=== PATIENT | female | born 1950 | race Caucasian/White ===

== ENCOUNTER 2019-03-23 14:06 | Outpatient (CLI) | payer SELFPAY | END 2019-03-23 14:07 | disposition EMS.NT | LOC: EMS 14:06 | PROVIDERS: ATTEND Surgery | DX: S80.811A Abrasion, right lower leg, initial encounter (principal); X58.XXXA Exposure to other specified factors, initial encounter ==

== ENCOUNTER 2020-08-25 10:08 | Outpatient (CLI) | payer MEDICARE ==
--- NOTE | 2020-08-25 10:55 | XRAY Report ---
PROCEDURE: Knee 3 View RT INDICATIONS: RIGHT KNEE PAIN TECHNIQUE: 3 views of the right knee(s) were acquired. COMPARISON: None. FINDINGS: Bones: Irregularity and cortical disruption at the lateral tibial plateau and proximal fibular head. Minimal displacement. No dislocation of the knee joint. Moderate joint space height loss at the late ral femoral tibial compartment. Tricompartmental osteoarthrosis. No suspicious bony lesions. Soft tissues: Suprapatellar joint effusion. No suspicious soft tissue calcifications. 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 IMPRESSION: Lateral tibial plateau and fibular head fractures. Reviewed by: Sunday Stein MD on 08/25/2020 9:[address] [facility] Approved by: Sunday Stein MD on 08/25/2020 9:[address] [facility] Station ID: [id number]
== END 2020-08-25 23:59 | disposition home or self-care (01) ==
LOC: DI.S 10:08
PROVIDERS: ATTEND Physician Assistant
DX: S82.141A Displaced bicondylar fracture of right tibia, initial encounter for closed fracture (principal); S82.831A Other fracture of upper and lower end of right fibula, initial encounter for closed fracture

== ENCOUNTER 2020-08-30 12:39 | Emergency (ER) | payer MEDICARE ==
[2020-08-30 13:11] LABS: BASOPHILS % (AUTO) 0.5 %; EOSINOPHILS % (AUTO) 0.5 %; HGB - HEMOGLOBIN 12.1 g/dL (12.0-16.0); LYMPHOCYTES % (AUTO) 12.2 %; MEAN CORPUSCULAR HEMOGLOBIN 31.6 pg (27.0-31.0); MEAN CORPUSCULAR HGB CONC 33.6 g/dL (32.0-36.0); MEAN PLATELET VOLUME 8.3 fL (7.9-10.8); MONOCYTES # (AUTO) 0.6 10^3/uL (0.0-1.0); NEUTROPHILS # (AUTO) 6.5 10^3/uL (1.5-6.6); NEUTROPHILS % (AUTO) 79.6 %; PLT - PLATELET COUNT 308 10^3/uL (130-450); RED BLOOD COUNT 3.83 10^6/uL (4.20-5.40); RED CELL DISTRIBUTION WIDTH 12.4 % (12.0-15.0); WHITE BLOOD COUNT 8.2 x10^3/uL (4.8-10.8)
[2020-08-30 13:17] LABS: INR 1.1 (0.8-1.2); PT - PROTHROMBIN TIME 12.2 secs (9.9-12.6)
[2020-08-30 13:26] LABS: ALBUMIN 4.2 g/dL (3.2-5.5); ALBUMIN/GLOBULIN RATIO 1.1 (1.0-2.2); BILIRUBIN,TOTAL 0.9 mg/dL (0.2-1.0); CALCIUM 9.9 mg/dL (8.5-10.3); CREATININE 0.5 mg/dL (0.4-1.0); TOTAL PROTEIN 7.9 g/dL (6.7-8.2)
[2020-08-30] MEDS ORDERED: diltiaZEM INJ 5 MG/ML VIAL IVP STA (13:37)
--- NOTE | 2020-08-30 13:39 | ED Physician Documentation ---
History of Present Illness - Stated complaint Stated Complaint: HIGH BP SENT BY - Chief complaint Chief Complaint: Cardiac - Additonal information Additional information: 69-year-old female is sent to the ED for evaluation of elevated blood pressure and tachycardia. She unfortunately sustained a right tib-fib fracture about 5 days ago. She was seen at our local walk-in clinic and this morning was following up with the orthopedist office. While in office they noted she had a blood pressure greater than 220 and a heart rate of 120 that was sinus. She was referred to the walk-in clinic for further evaluation. However given the ta chycardia and hypertension she was advised to come to the emergency department. She denies chest pain, dyspnea, pleuritic pain, feeling faint or dizzy, nausea vomiting, diarrhea, dysuria. She does have some swelling of the right leg since the fall and fracture. She denies a history of high blood pressure and has never been treated for such. She does have a strong family history of hypertension. She is not a smoker. No alcohol use. She reports that she takes a daily aspirin. She is unsure if it is a baby or 325 mg tablet. Review of Systems Constitutional: denies: Fever, Chills Eyes: reports: Reviewed and negative Ears: reports: Reviewed and negative Nose: reports: Reviewed and negative Throat: reports: Reviewed and negative Cardiac: denies: Chest pain / pressure, Palpitations, Pedal edema, Calf pain Respiratory: denies: Dyspnea, Cough, Hemoptysis, Wheezing GI: denies: Abdominal Pain, Abdominal Swelling, Nausea, Vomiting : denies: Dysuria Skin: denies: Rash Musculoskeletal: denies: Neck pain, Back pain Neurologic: denies: Generalized weakness, Difficulty speaking, Near syncope, Syncope, Seizure, Confused, Altered mental status, Headache Psychiatric: denies: Depressed, Suicidal Endocrine: reports: Reviewed and negative PD PAST MEDICAL HISTORY - Past Surgical History Past Surgical History: Yes /[employer]: Hysterectomy HEENT: Tonsil/Adenoidectomy - Present Medications Home Medications: Ambulatory Orders Medication Instructions Recorded Confirmed cephALEXin [Keflex] 500 mg PO Q6H 7 Days capsule 10/23/14 Metoprolol Tartrate [Lopressor] 25 mg PO BID #60 tablet 08/30/20 - Allergies Allergies/Adverse Reactions: Allergies Allergy/AdvReac Type Severity Reaction Status Date / Time No Known Drug Allergies Allergy Verified 10/23/14 13:00 - Social History Does the pt smoke?: No Smoking Status: Never smoker Does the pt drink ETOH?: No Does the pt have substance abuse?: No - Immunizations Immunizations are current?: Yes - POLST Patient has POLST: No PD ED PE NORMAL - General General: Alert and oriented X 3, No acute distress, Well developed/nourished - HEENT HEENT: PERRL, Ears normal, Moist mucous membranes - Neck Neck: Supple, no meningeal sign, No adenopathy, Thyroid normal, No JVD - Cardiac Cardiac: RRR, No murmur, No gallop, Strong equal pulses - Respiratory Respiratory: No respiratory distress, Clear bilaterally - Abdomen Abdomen: Normal bowel sounds, Soft, Non tender, Non distended - Derm Derm: Normal color, Warm and dry, No rash - Extremities Extremities: No deformity Results - Vitals Vitals: Vital Signs - 24 hr 08/30/20 08/30/20 08/30/20 13:04 13:34 13:56 Temperature 37.1 C Heart Rate 120 H 117 H 94 Respiratory 16 14 18 Rate Blood Pressure 181/115 H 180/94 H 191/92 H O2 Saturation 100 98 99 08/30/20 14:22 Temperature Heart Rate 83 Respiratory 18 Rate Blood Pressure 172/86 H O2 Saturation 97 Oxygen O2 Source Room air - EKG (time done) 1303 Rate: Rate (enter#) (115) Rhythm: Sinus tachycardia Intervals: Normal CO QRS: LVH Ischemia: Q waves (inferior leads; age indertiminant), Non specific changes Compare to prior EKG: Old EKG unavailable Computer interpretation: Agree with computer - Labs Labs: Laboratory Tests 08/30/20 08/30/20 08/30/20 13:01 13:01 13:01 WBC 8.2 RBC 3.83 L Hgb 12.1 Hct 36.0 L MCV 94.0 MCH 31.6 H MCHC 33.6 RDW 12.4 Plt Count 308 MPV 8.3 Neut # (Auto) 6.5 Lymph # (Auto) 1.0 L Meade # (Auto) 0.6 Eos # (Auto) 0.0 Baso # (Auto) 0.0 Absolute Nucleated RBC 0.00 Nucleated RBC % 0.0 PT 12.2 INR 1.1 Sodium 138 Potassium 3.6 Chloride 102 Carbon Dioxide 23 Anion Gap 13.0 BUN 18 Creatinine 0.5 Estimated GFR (MDRD) 122 Glucose 111 H Calcium 9.9 Total Bilirubin 0.9 AST 28 ALT 19 Alkaline Phosphatase 64 Troponin I High Sens B-Natriuretic Peptide Total Protein 7.9 Albumin 4.2 Globulin 3.7 Albumin/Globulin Ratio 1.1 Lipase 22 08/30/20 08/30/20 13:01 13:01 WBC RBC Hgb Hct MCV MCH MCHC RDW Plt Count MPV Neut # (Auto) Lymph # (Auto) Meade # (Auto) Eos # (Auto) Baso # (Auto) Absolute Nucleated RBC Nucleated RBC % PT INR Sodium Potassium Chloride Carbon Dioxide Anion Gap BUN Creatinine Estimated GFR (MDRD) Glucose Calcium Total Bilirubin AST ALT Alkaline Phosphatase Troponin I High Sens 4.6 B-Natriuretic Peptide 27 Total Protein Albumin Globulin Albumin/Globulin Ratio Lipase - Rads (name of study) CXR Radiology: Final report received (No acute cardiopulmonary process.) PD MEDICAL DECISION MAKING - ED course Complexity details: reviewed results, re-evaluated patient, considered differential, d/w patient ED course: 69-year-old female was referred to the emergency department from the [facility] walk-in clinic for evaluation of tachycardia and hypertension. Patient denies that she has ever been treated for either disorder. She does have a strong family history of hypertension but has never taken medications herself. She is not a smoker. She had denied any chest pain, shortness of breath orthopnea weakness dizziness or near syncope. She reported that she has felt fine with the exception of her tibia fracture and would not have known to come to the emergency department if not alerted to do so. Her EKG today is sinus but does have Q waves in the inferior leads. Again today she denies chest pain. High-sensitivity troponin is negative. BNP is unremarkable. In fact her serum chemistry and CBC are all essentially within normal limits. Chest x-ray is also unremarkable with no findings of cardiomegaly or heart failure. When she presented she was fairly tachycardic with a rhythm that was sinus about 115. She did have a markedly elevated blood pressure with a systolic greater than 200. She was given 10 mg of diltiazem which successfully dropped her heart rate into the 90s. And she remained sinus. Her blood pressure did decrease into the 180s. At this time she has remained very stable here in the emergency department. She will be discharged home and started on Metroprolol tartrate 25 mg twice a day. She is advised to schedule a close follow-up appointment with a primary care doctor soon as possible. She should be referred for outpatient echocardiogram and stress test. Patient is to return to the emergency department with chest pain, dizziness shortness of breath or any other emergent concerns. She will continue to follow-up with orthopedics for her tib-fib fracture. Departure - Departure Disposition: Home, Self Care Clinical Impression: Tachycardia Hypertension Qualifiers: Hypertension type: unspecified Qualified Code(s): I10 - Essential (primary) hypertension Condition: Stable Record reviewed to determine appropriate education?: Yes Instructions: Beta Delvis, High Blood Pressure Follow-Up: [facility] [Provider Group] - Within 1 week Prescriptions: Metoprolol Tartrate [Lopressor] 25 mg PO BID #60 tablet Comments: You were seen in the emergency department today for elevated blood pressure and heart rate. You do need to have both of these issues addressed. I would like you to begin taking the metoprolol twice daily. Today your EKG does suggest that you may have had a myocardial infarction at some time in the past.. However your chest x-ray and labs today are all essentially unremarkable. In the long-term it is very important that you be referred for an outpatient echocardiogram and stress test. I do recommend that you follow-up with [facility] to establish care. However if you do have a primary care doctor that you can get into sooner that I recommend that you call them as soon as possible. If at any point you develop fevers, have chest pain or shortness of breath please return immediately to the ER
--- NOTE | 2020-08-30 13:57 | XRAY Report ---
PROCEDURE: Chest 1 View X-Ray INDICATIONS: Chest Pain TECHNIQUE: One view of the chest was acquired. COMPARISON: None FINDINGS: Surgical changes and devices: None. Lungs and pleura: No pleural effusions or pneumothorax. Lungs are clear. Mediastinum: Mediastinal contours appear normal. Heart size is normal. Bones and chest wall: No suspicious bony lesions. Overlying soft tissues appear unremarkable. IMPRESSION: No acute cardiopulmonary disease process. Reviewed by: Brianna Rodriguez MD, PhD on 08/30/2020 1:55 PM [facility] Approved by: Brianna Rodriguez MD, PhD on 08/30/2020 1:55 PM [facility] Station ID: [id number]
[2020-08-30] MEDS ORDERED: METOPROLOL TARTRATE 50 MG TABLET PO STA (15:10)
[2020-08-30 15:20] VITALS: BP 165/94
== END 2020-08-30 15:30 | disposition home or self-care (01) ==
LOC: ED 12:39
DX: I10 Essential (primary) hypertension (principal); R00.0 Tachycardia, unspecified; Z79.82 Long term (current) use of aspirin; Z82.49 Family history of ischemic heart disease and other diseases of the circulatory system
CPT/HCPCS: 71045; 80053; 83690; 83880; 84484; 85025; 85610; 93005; 96374; 99284; 99285; A9270

== ENCOUNTER 2020-10-01 09:00 | Outpatient (CLI) | payer MEDICARE ==
[2020-10-01 15:36] LABS: BASOPHILS # (AUTO) 0.1 10^3/uL (0.0-0.1); BASOPHILS % (AUTO) 0.9 %; EOSINOPHILS # (AUTO) 0.1 10^3/uL (0.0-0.7); EOSINOPHILS % (AUTO) 2.3 %; HGB - HEMOGLOBIN 13.9 g/dL (12.0-16.0); LYMPHOCYTES # (AUTO) 1.3 10^3/uL (1.5-3.5); MEAN CORPUSCULAR HEMOGLOBIN 31.3 pg (27.0-31.0); MEAN CORPUSCULAR HGB CONC 32.2 g/dL (32.0-36.0); MEAN CORPUSCULAR VOLUME 97.3 fL (81.0-99.0); MEAN PLATELET VOLUME 9.3 fL (7.9-10.8); MONOCYTES # (AUTO) 0.5 10^3/uL (0.0-1.0); MONOCYTES % (AUTO) 8.8 %; NEUTROPHILS # (AUTO) 3.5 10^3/uL (1.5-6.6); NEUTROPHILS % (AUTO) 63.6 %; PLT - PLATELET COUNT 276 10^3/uL (130-450); RED BLOOD COUNT 4.44 10^6/uL (4.20-5.40); RED CELL DISTRIBUTION WIDTH 13.1 % (12.0-15.0); WHITE BLOOD COUNT 5.6 x10^3/uL (4.8-10.8)
[2020-10-01 16:18] LABS: ALBUMIN/GLOBULIN RATIO 1.7 (1.0-2.2); ALKALINE PHOSPHATASE 92 IU/L (42-121); ALT ALANINE AMINOTRANSFERASE 13 IU/L (10-60); AST ASPARTATE AMINOTRANSFERASE 19 IU/L (10-42); BILIRUBIN,TOTAL 0.8 mg/dL (0.2-1.0); BUN - BLOOD UREA NITROGEN 15 mg/dL (6-20); CALCIUM 9.9 mg/dL (8.5-10.3); CARBON DIOXIDE - CO2 26 mmol/L (21-32); CHLORIDE 100 mmol/L (101-111); CHOL/HDL RATIO 4.9 (<4.4); CHOLESTEROL 284 mg/dL; CREATININE 0.6 mg/dL (0.4-1.0); GLUCOSE 102 mg/dL (70-100); HDL CHOLESTEROL 58 mg/dL; LDL CHOLESTEROL,CALCULATED 206 mg/dL; LDL/HDL RATIO 3.6 (<4.4); SODIUM 137 mmol/L (135-145); TOTAL PROTEIN 7.9 g/dL (6.7-8.2); VLDL CHOLESTEROL 20 mg/dL
== END 2020-10-01 09:01 | disposition home or self-care (01) ==
LOC: LAB.S 09:00
PROVIDERS: ATTEND Internal Medicine
DX: Z13.6 Encounter for screening for cardiovascular disorders (principal)
CPT/HCPCS: 36415; 80053; 80061; 83721; 85025

== ENCOUNTER 2020-10-11 18:05 | Outpatient (CLI) | payer MEDICARE ==
--- NOTE | 2020-10-11 13:50 | XRAY Report ---
PROCEDURE: Knee 4 View RT INDICATIONS: NONDISPLACED BICONDYLAR FX OF R TIBIA TECHNIQUE: 4 views of the right knee(s) were acquired. COMPARISON: X-ray knee 08/25/2020 FINDINGS: Bones: There has been interval sclerosis with stable alignment at site of previous tibial plateau fra cture. No additional depression is identified. Fibular head fracture is also noted with mild interval sclerosis. No change in alignment. Tricompartmental osteoarthritic changes present. Soft tissues: Mild joint effusion. No suspicious soft tissue calcifications. IMPRESSION: Stable alignment and sclerosis indicative of mild interval healing of previous fibular h ead as well as tibial plateau fractures. Reviewed by: Magui Blanc MD on 10/11/2020 1:49 PM PST Approved by: Magui Blanc MD on 10/11/2020 1:49 PM PST Station ID: [id number]
== END 2020-10-11 23:59 | disposition home or self-care (01) ==
LOC: DI.N 18:05
PROVIDERS: ATTEND Orthopaedic Surgery
DX: S82.831D Other fracture of upper and lower end of right fibula, subsequent encounter for closed fracture with routine healing (principal); S82.141D Displaced bicondylar fracture of right tibia, subsequent encounter for closed fracture with routine healing

== ENCOUNTER 2021-03-07 13:47 | Outpatient (CLI) | payer MEDICARE ==
--- NOTE | 2021-03-08 11:13 | Mammography Report ---
BILATERAL DIGITAL SCREENING MAMMOGRAM 3D/2D: 03/07/2021 CLINICAL: Routine screening. Comparison is made to exam dated: 10/14/2007 mammogram - [facility]. There are sca ttered fibroglandular elements in both breasts. No significant masses, calcifications, or other findings are seen in either breast. There has been no significant interval change. IMPRESSION: NEGATIVE There is no mammographic evidence of malignancy. A 1 year screening mammogram is recommended. This exam was interpreted at Station ID: [id number]. NOTE: For mammograms, a report in lay terms will be sent to the patient. Approximately 15% of breast malignancies will not be visualized mammographically. In the management of a palpable breast mass, a negative mammogram must not discourage biopsy of a clinically suspicious lesion. Electronically Signed By: Sean medeiros/rodney:03/07/2021 15:04:27 ACR BI-RADS Category 1: Negative 3341F PARENCHYMAL PATTERN: (A) - The breast(s) demonstrate(s) scattered fibroglandular densities. BI-RADS CATEGORY: (1) - 1 RECOMMENDATION: (ANNUAL) - Recommend routine annual screening mammography. [id number] 1 year screening LATERALITY: (B)
== END 2021-03-07 13:48 | disposition home or self-care (01) ==
LOC: DI 13:47
PROVIDERS: ATTEND Internal Medicine
DX: Z12.31 Encounter for screening mammogram for malignant neoplasm of breast (principal)

== ENCOUNTER 2021-03-12 07:56 | Outpatient (CLI) | payer MEDICARE ==
[2021-03-12 15:23] LABS: ALBUMIN 4.7 g/dL (3.2-5.5); ALBUMIN/GLOBULIN RATIO 1.7 (1.0-2.2); ALKALINE PHOSPHATASE 58 IU/L (42-121); ALT ALANINE AMINOTRANSFERASE 17 IU/L (10-60); AST ASPARTATE AMINOTRANSFERASE 23 IU/L (10-42); BILIRUBIN,TOTAL 0.8 mg/dL (0.2-1.0); BUN - BLOOD UREA NITROGEN 17 mg/dL (6-20); CALCIUM 9.1 mg/dL (8.5-10.3); CARBON DIOXIDE - CO2 24 mmol/L (21-32); CHLORIDE 104 mmol/L (101-111); CHOL/HDL RATIO 2.8 (<4.4); CHOLESTEROL 165 mg/dL; CREATININE 0.6 mg/dL (0.4-1.0); GFR - MDRD 98 (>89); GLUCOSE 92 mg/dL (70-100); HDL CHOLESTEROL 59 mg/dL; LDL CHOLESTEROL,CALCULATED 93 mg/dL; LDL/HDL RATIO 1.6 (<4.4); POTASSIUM 4.1 mmol/L (3.5-5.0); SODIUM 136 mmol/L (135-145); TOTAL PROTEIN 7.4 g/dL (6.7-8.2); TRIGLYCERIDES 67 mg/dL; VLDL CHOLESTEROL 13 mg/dL
== END 2021-03-12 07:57 | disposition home or self-care (01) ==
LOC: LAB.S 07:56
PROVIDERS: ATTEND Internal Medicine
DX: E78.5 Hyperlipidemia, unspecified (principal); Z13.6 Encounter for screening for cardiovascular disorders
CPT/HCPCS: 36415; 80053; 80061; 83721

== ENCOUNTER 2021-09-20 07:59 | Outpatient (CLI) | payer MEDICARE ==
[2021-09-20 15:11] LABS: BASOPHILS # (AUTO) 0.1 10^3/uL (0.0-0.1); BASOPHILS % (AUTO) 0.8 %; EOSINOPHILS # (AUTO) 0.2 10^3/uL (0.0-0.7); EOSINOPHILS % (AUTO) 2.7 %; HCT - HEMATOCRIT 40.9 % (37.0-47.0); HGB - HEMOGLOBIN 13.9 g/dL (12.0-16.0); LYMPHOCYTES # (AUTO) 1.7 10^3/uL (1.5-3.5); LYMPHOCYTES % (AUTO) 28.5 %; MEAN CORPUSCULAR HEMOGLOBIN 31.9 pg (27.0-31.0); MEAN CORPUSCULAR VOLUME 93.8 fL (81.0-99.0); MEAN PLATELET VOLUME 9.2 fL (7.9-10.8); MONOCYTES # (AUTO) 0.5 10^3/uL (0.0-1.0); MONOCYTES % (AUTO) 8.9 %; NEUTROPHILS # (AUTO) 3.5 10^3/uL (1.5-6.6); NEUTROPHILS % (AUTO) 58.8 %; PLT - PLATELET COUNT 268 10^3/uL (130-450); RED BLOOD COUNT 4.36 10^6/uL (4.20-5.40); RED CELL DISTRIBUTION WIDTH 12.2 % (12.0-15.0)
[2021-09-20 15:16] LABS: ALBUMIN 4.5 g/dL (3.2-5.5); ALBUMIN/GLOBULIN RATIO 1.5 (1.0-2.2); ALKALINE PHOSPHATASE 57 IU/L (42-121); ALT ALANINE AMINOTRANSFERASE 18 IU/L (10-60); AST ASPARTATE AMINOTRANSFERASE 22 IU/L (10-42); BILIRUBIN,TOTAL 0.8 mg/dL (0.2-1.0); BUN - BLOOD UREA NITROGEN 17 mg/dL (6-20); CALCIUM 9.7 mg/dL (8.5-10.3); CARBON DIOXIDE - CO2 27 mmol/L (21-32); CHLORIDE 104 mmol/L (101-111); CHOL/HDL RATIO 3.2 (<4.4); CHOLESTEROL 173 mg/dL; CREATININE 0.5 mg/dL (0.4-1.0); GFR - MDRD 121 (>89); GLUCOSE 92 mg/dL (70-100); HDL CHOLESTEROL 54 mg/dL; LDL CHOLESTEROL,CALCULATED 102 mg/dL; LDL/HDL RATIO 1.9 (<4.4); SODIUM 140 mmol/L (135-145); TOTAL PROTEIN 7.6 g/dL (6.7-8.2); TRIGLYCERIDES 86 mg/dL; VLDL CHOLESTEROL 17 mg/dL
== END 2021-09-20 08:00 | disposition home or self-care (01) ==
LOC: LAB.S 07:59
PROVIDERS: ATTEND Internal Medicine
DX: Z13.6 Encounter for screening for cardiovascular disorders (principal)
CPT/HCPCS: 36415; 80053; 80061; 83721; 85025

== ENCOUNTER 2023-07-17 08:31 | Outpatient (CLI) | payer MEDICARE ==
[2023-07-17 15:16] LABS: BASOPHILS # (AUTO) 0.1 10^3/uL (0.0-0.1); EOSINOPHILS # (AUTO) 0.6 10^3/uL (0.0-0.7); EOSINOPHILS % (AUTO) 7.7 %; HCT - HEMATOCRIT 41.9 % (37.0-47.0); HGB - HEMOGLOBIN 13.9 g/dL (12.0-16.0); LYMPHOCYTES # (AUTO) 1.5 10^3/uL (1.5-3.5); LYMPHOCYTES % (AUTO) 21.7 %; MEAN CORPUSCULAR HEMOGLOBIN 31.5 pg (27.0-31.0); MEAN CORPUSCULAR HGB CONC 33.2 g/dL (32.0-36.0); MEAN PLATELET VOLUME 9.5 fL (7.9-10.8); MONOCYTES # (AUTO) 0.7 10^3/uL (0.0-1.0); MONOCYTES % (AUTO) 9.1 %; NEUTROPHILS # (AUTO) 4.3 10^3/uL (1.5-6.6); NEUTROPHILS % (AUTO) 60.4 %; PLT - PLATELET COUNT 288 10^3/uL (130-450); RED BLOOD COUNT 4.41 10^6/uL (4.20-5.40); RED CELL DISTRIBUTION WIDTH 12.4 % (12.0-15.0); WHITE BLOOD COUNT 7.1 x10^3/uL (4.8-10.8)
[2023-07-17 15:23] LABS: ALBUMIN 4.6 g/dL (3.2-5.5); ALBUMIN/GLOBULIN RATIO 1.6 (1.0-2.2); ALKALINE PHOSPHATASE 66 IU/L (42-121); ALT ALANINE AMINOTRANSFERASE 16 IU/L (10-60); AST ASPARTATE AMINOTRANSFERASE 21 IU/L (10-42); BILIRUBIN,TOTAL 0.6 mg/dL (0.2-1.0); BUN - BLOOD UREA NITROGEN 16 mg/dL (6-20); CALCIUM 9.8 mg/dL (8.5-10.3); CARBON DIOXIDE - CO2 31 mmol/L (21-32); CHLORIDE 103 mmol/L (101-111); CHOL/HDL RATIO 3.2 (<4.4); CHOLESTEROL 175 mg/dL; CREATININE 0.6 mg/dL (0.6-1.3); GFR - MDRD 98 (>89); GLUCOSE 85 mg/dL (74-104); HDL CHOLESTEROL 54 mg/dL; LDL CHOLESTEROL,CALCULATED 97 mg/dL; LDL/HDL RATIO 1.8 (<4.4); SODIUM 139 mmol/L (135-145); TOTAL PROTEIN 7.5 g/dL (6.4-8.9); TRIGLYCERIDES 122 mg/dL (48-352); VLDL CHOLESTEROL 24 mg/dL
== END 2023-07-17 08:32 | disposition home or self-care (01) ==
LOC: LAB.S 08:31
PROVIDERS: ATTEND Registered Nurse
DX: E78.5 Hyperlipidemia, unspecified (principal); Z13.6 Encounter for screening for cardiovascular disorders
CPT/HCPCS: 36415; 80053; 80061; 83721; 85025

== ENCOUNTER 2023-09-22 10:40 | Outpatient (CLI) | payer MEDICARE ==
--- NOTE | 2023-09-23 09:57 | Mammography Report ---
BILATERAL DIGITAL SCREENING MAMMOGRAM 3D/2D: 09/22/2023 CLINICAL: Routine screening. Comparison is made to exams dated: 03/07/2021 mammogram and 10/14/2007 mammogram - [facility]. There are scattered areas of fibroglandular density in both breasts (category b / 25%-50% glandular t issue). No significant masses, calcifications, or other findings are seen in either breast. There has been no significant interval change. IMPRESSION: NEGATIVE There is no mammographic evidence of malignancy. A 1 year screening mammogram is recommended. Based on the Tyrer Cuzick model (a risk assessment model) the patients lifetime risk is 2.1% and her 10 year risk is 1.9%. According to the ACR, ACS, and NCCN guidelines, an annual breast MRI exam leah g with mammogram is recommended if the patients lifetime risk is 20% or greater. This exam was interpreted at Station ID: [id number]. NOTE: For mammograms, a report in lay terms will be sent to the patient. Approximately 15% of breast malignancies will not be visualized mammographically. In the management of a palpable breast mass, a negative mammogram must not discourage biopsy of a clinically suspicious lesion. Electronically Signed By: Sean medeiros/rodney:09/22/2023 15:28:22 letter sent: No_Letter ACR BI-RADS Category 1: Negative 3341F PARENCHYMAL PATTERN: (A) - The breast(s) demonstrate(s) scattered fibroglandular densities. BI-RADS CATEGORY: (1) - 1 Mammogram [id number] 1 year screening LATERALITY: (B)
== END 2023-09-22 10:41 | disposition home or self-care (01) ==
LOC: DI.S 10:40
PROVIDERS: ATTEND Registered Nurse
DX: Z12.31 Encounter for screening mammogram for malignant neoplasm of breast (principal); R92.323 Mammographic fibroglandular density, bilateral breasts